=== PATIENT | female | born 1995 | race Caucasian/White ===

== ENCOUNTER 2017-03-31 00:07 | Inpatient (IN) | payer BC, OTHER ==
[~2017-03-31 00:07] MED LIST: Misoprostol 50 MCG (1/2 of 100 MCG) Tab VAG PRN
[2017-03-31] MEDS ORDERED: Carboprost Tromethamine 250 MCG/1 ML Amp IM PRN (01:19)
[2017-03-31] MEDS ORDERED: Misoprostol 400 MCG (4 X 100 MCG TAB) RECTAL PRN (01:19)
[2017-03-31] MEDS ORDERED: Acetaminophen 325 MG Tab PO PRN ×2 (01:19)
[2017-03-31] MEDS ORDERED: Methylergonovine 0.2 MG/1 ML Amp IM PRN (01:19)
[2017-03-31] MEDS ORDERED: Sodium Chloride 0.9% 10 ML Syringe FLUSH PRN (01:19)
[2017-03-31] MEDS ORDERED: Lactated Ringers 500 ML IV ONE (01:19)
[2017-03-31] MEDS ORDERED: Ondansetron 4 MG/2 ML SDV IV PRN (01:19)
[2017-03-31] MEDS ORDERED: Lidocaine 1% 30 ML SDV INJECT PRN (01:19)
[2017-03-31] MEDS ORDERED: Oxytocin/Normal Saline 30 UNIT/500 ML BAG IV SCH ×2 (01:30→15:15)
[2017-03-31] MEDS ORDERED: Misoprostol 25 MCG (1/4 of 100 MCG) Tab VAG PRN (05:27)
[2017-03-31] MEDS: Lactated Ringers 1,000 ML IV SCH ×5 (08:35→22:48)
--- NOTE | 2017-03-31 09:20 | OBOUT ---
DATE: 03/31/2017 DATE AND TIME OF NST: Date: 03/31/2017. Time: 0100 hours to 0120 hours. REASON FOR NST: 1. Intrauterine at 41-1/7th weeks by 15-3/7th weeks' ultrasound. 2. Group B Strep negative. 3. Rubella nonimmune. 4. History of low-lying posterior placenta - resolved in . 5. 1, para 0. NST INTERPRETATION: During this time period, heart tone baseline is approximately 135, and there are at least two 15 x 15 beat per minute accelerations, making this strip reactive. It is also noted to be reassuring. Tocometer reveals potential of 1 contraction not felt by patient. ASSESSMENT AND PLAN: 1. Nonstress test - reactive and reassuring. 2. Tocometer with contraction. PLAN: Please see admit history and physical for further details. Updated and included are vitals which are stable. Temperature 97, heart rate of 96, blood pressure 130/76. Vaginal exam reveals her to be 1 cm, 75% effaced, 0 station, vertex suspected, with cervix being posterior. Cytotec 25 mcg x1 was placed. Please see other notes for further details. We will continue to follow clinically and closely at this time. [facility] /[id number]
[2017-03-31] MEDS ORDERED: Nalbuphine 10 MG/1 ML Vial IM ONE (09:53)
[2017-03-31] MEDS ORDERED: Morphine PF 5 MG/10 ML SDV ONE (10:26)
[2017-03-31] MEDS ORDERED: Meperidine PF 50 MG/ML Syringe IV ONE (10:26)
[2017-03-31] MEDS ORDERED: Midazolam 1 MG/ML 2 ML SDV IV ONE (10:26)
[2017-03-31] MEDS ORDERED: fentaNYL 100 MCG/2 ML SDV ITHECAL ONE ×2 (10:26)
[2017-03-31] MEDS ORDERED: Oxytocin/Normal Saline 30 UNIT/500 ML BAG IV ONE (10:29)
--- NOTE | 2017-03-31 13:20 | PN ---
DATE: 03/31/2017 SUBJECTIVE: The patient has been having some back pain. OBJECTIVE: Tocometer reveals contractions every minute and half to [address] a second dose of Cytotec through the morning. Vaginal exam reveals her to be 2 cm, 75% effaced, -1 station, vertex suspected. Artificial rupture of membranes done after discussion with the patient yielding copious amounts of clear fluid. heart tones in the 150, so acceleration noted with vaginal exam. ASSESSMENT AND PLAN: Intrauterine 41 and 1/7th sounds weeks by 15 and 3/7 week ultrasound. Group B Streptococcus negative. Rubella nonimmune. G1, P0. Now status post Cytotec x1 and artificial rupture of membranes. We will continue to follow clinically and closely. The patient understands and agrees with the above treatment plan. [facility] /[id number]
[2017-03-31] MEDS ORDERED: fentaNYL 100 MCG/2 ML SDV ONE ×2 (13:35→16:51)
--- NOTE | 2017-03-31 14:07 | PN ---
DATE: 03/31/2017 SUBJECTIVE: The patient has been breathing through her contractions. She had some Nubain earlier, which helped. OBJECTIVE: heart tones in the 120s range with acceleration seen. Tocometer difficult to discern, but appears to be contractions every couple minutes. Vaginal exam reveals to be 4-5 cm, 90% effaced, 0 station, vertex suspected. ASSESSMENT AND PLAN: Intrauterine 41 and 1/7th weeks by 15 and 3/7 week ultrasound. Group B Streptococcus negative. Rubella nonimmune. The patient now status post Cytotec x1 and artificial rupture of membranes and active labor requesting something more for pain. We will do an intrathecal and follow clinically and closely. The patient understands and agrees with the above treatment plan. [facility] /[id number]
--- NOTE | 2017-03-31 14:08 | PCM.PREANE ---
Preanesthetic Assessment - Procedure Proposed Procedure: Intarthecal Narcotics for Labor pain - Anesthesia/Transfusion/Family Hx Anesthesia History: No Prior Anesthesia Family History of Anesthesia Reaction: No Transfusion History: No Prior Transfusion(s) Intubation History: Unknown - Review of Systems General: No Symptoms Pulmonary: No Symptoms Cardiovascular: No Symptoms Gastrointestinal: No symptoms Neurological: No Symptoms Other: Reports: None - Physical Assessment NPO Status Date: 03/31/17 NPO Status Time: 08:00 Pulse: 98 O2 Sat by Pulse Oximetry: 99 Respiratory Rate: 18 Blood Pressure: 118/68 Temperature: 97.8 F Vital Signs: Last Vital Signs Temp 98.2 F 03/31/17 08:00 Pulse 97 03/31/17 08:00 Resp 18 03/31/17 08:00 BP 120/77 03/31/17 08:00 Pulse Ox Height: 1.65 m Weight: 101.605 kg ASA Class: 2 Mental Status: Alert & Oriented x3 Airway Class: Mallampati = 2 Dentition: Reports: Normal Dentition Thyro-Mental Finger Breadths: 3 Mouth Opening Finger Breadths: 4 ROM/Head Extension: Full Lungs: Clear to auscultation, Normal respiratory effort Cardiovascular: Regular Rate, Regular Rhythm - Lab Values: Laboratory Last Values WBC 13.7 10^3/uL (5.0-10.0) H 03/31/17 01:00 RBC 4.54 10^6/uL (4.2-5.4) 03/31/17 01:00 Hgb 13.3 g/dL (12.0-16.0) 03/31/17 01:00 Hct 39.4 % (37.0-47.0) 03/31/17 01:00 MCV 86.8 fL (80-100) 03/31/17 01:00 MCH 29.3 pg (27.0-34.0) 03/31/17 01:00 MCHC 33.8 g/dL (33.0-35.0) 03/31/17 01:00 Plt Count 239 10^3/uL (150-450) 03/31/17 01:00 - Allergies Allergies/Adverse Reactions: Allergies Allergy/AdvReac Type Severity Reaction Status Date / Time sulfamethoxazole Allergy Cannot Verified 03/31/17 03:01 [From Bactrim] Remember trimethoprim [From Bactrim] Allergy Cannot Verified 03/31/17 03:01 Remember - Blood Blood Available: No Product(s) Available: None - Anesthesia Plan Pre-Op Medication Ordered: None - Acknowledgements Anesthesia Type Planned: Spinal Pt an Appropriate Candidate for the Planned Anesthesia: Yes Alternatives and Risks of Anesthesia Discussed w Pt/Guardian: Yes Pt/Guardian Understands and Agrees with Anesthesia Plan: Yes Additional Comments: R/B of Intrathecal narcotics discussed and agreed to by patient. Consent is signed PreAnesthesia Questionnaire - Past Health History Medical/Surgical History: Denies Medical/Surgical History CARE ADMINISTRATIVE TECH History: Reports: - Past Surgical History HEENT Surgical History: Reports: Other (See Below) Other HEENT Surgeries/Procedures: PE tubes - SUBSTANCE USE Smoking Status *Q: Never Smoker Second Hand Smoke Exposure: No Days Per Week of Alcohol Use: 0 Recreational Drug Use History: No - HOME MEDS Home Medications: Home Meds Pnv No.122/Iron/Folic Acid [ Multi Tablet] 1 each PO DAILY 03/31/17 [ History] - CURRENT (IN HOUSE) MEDS Current Meds: Current Medications Acetaminophen (Tylenol) 650 mg PO Q4H PRN PRN Reason: Pain (Mild 1-3) and fever Last Admin: 03/31/17 08:00 Dose: 650 mg Carboprost Tromethamine (Hemabate Ds) 250 mcg IM ASDIRECTED PRN PRN Reason: HEMORRHAGE Lactated Ringer's (Ringers, Lactated) 1,000 mls @ 125 mls/hr IV ASDIRECTED SVEN Last Admin: 03/31/17 09:40 Dose: 125 mls/hr Oxytocin/Sodium Chloride (Pitocin In Ns 30 Unit/500 Ml) 30 unit in 500 mls @ 2 mls/hr IV TITRATE SVEN; 2 MUNITS/MIN PRN Reason: Protocol Lidocaine HCl (Xylocaine-Mpf 1%) 10 ml INJECT ASDIRECTED PRN PRN Reason: Perineal Repair Methylergonovine Maleate (Methergine) 0.2 mg IM ASDIRECTED PRN PRN Reason: Hemorrhage Misoprostol (Cytotec) 25 mcg VAG ONETIME PRN PRN Reason: Other Last Admin: 03/31/17 01:27 Dose: 25 mcg Misoprostol (Cytotec) 800 mcg RECTAL ASDIRECTED PRN PRN Reason: Hemorrhage Misoprostol (Cytotec) 25 mcg VAG Q4H PRN PRN Reason: cervical ripening Stop: 04/01/17 09:28 Ondansetron HCl (Zofran) 4 mg IV Q4H PRN PRN Reason: Nausea/Vomiting Sodium Chloride (Saline Flush) 10 ml FLUSH ASDIRECTED PRN PRN Reason: Keep Vein Open Discontinued Medications Acetaminophen (Tylenol) 650 mg PO Q4H PRN PRN Reason: Pain/Fever Fentanyl (Sublimaze) Confirm Administered Dose 100 mcg .ROUTE .STK-MED ONE Stop: 03/31/17 13:36 Lactated Ringer's (Ringers, Lactated) 500 mls @ 500 mls/hr IV .BOLUS ONE Stop: 03/31/17 02:18 Nalbuphine HCl (Nubain) 20 mg IM ONETIME ONE Stop: 03/31/17 09:54 Last Admin: 03/31/17 10:05 Dose: 20 mg Sufentanil Citrate (Sufenta) Confirm Administered Dose 50 mcg .ROUTE .STK-MED ONE Stop: 03/31/17 13:36
--- NOTE | 2017-03-31 14:09 | PCM.PRNOTE ---
- Free Text/Narrative Note: Chart Reviewed, Patient ID'd, Risk Benefit of spinal narcotic for labor pain is discussed and agreed to by patient. Consent signed. Preloaded with 1 liter of LR. Baseline VS is obtained. In sitting position L 4-5 inner space is ID'd. Skin wheel and space infiltration with 1% lidocaine. 24 G pencan spinal needle is introduced into via 18 G introducer needle into SA space. No Paresthesia, No Blood, Positive CSF. 6 mg Hyperbaric Marcaine, 20 mcg sufentanyl, 30 mcg fentanyl, epinepherine wash and 1 ml preservative free normal saline injected after positive swirl of CSFx2. VSS Dermatone level is T8 Bilateral and immediate labor pain relieve reported by patient.
--- NOTE | 2017-03-31 15:04 | PN ---
DATE: 03/31/2017 SUBJECTIVE: The patient is comfortable status post intrathecal. OBJECTIVE: heart tones in the 130s range. Occasional deceleration but unable to tell where it is at in regards to contraction. Vaginal exam reveals to be 4-5 cm, 95% effaced, 0 station, vertex suspected, and IUPC placed after discussion with the patient. ASSESSMENT AND PLAN: Intrauterine 41 and 1/7th weeks by 15 and 3/7th weeks ultrasound now status post Cytotec x1 artificial rupture of membranes and IUPC placement. We will follow MVUs closely, use Pitocin as needed and follow maternal status closely. The patient understands and agrees with the above treatment plan. [facility] /[id number]
--- NOTE | 2017-03-31 17:15 | PCM.PRNOTE ---
- Free Text/Narrative Note: Repeat Intracthecal Narcotics. Pain level is 8. Patient is able to move her legs but not wiggle her toes. Baseline VS is obtained. In sitting position L 4-5 inner space is ID'd. Skin wheel and space infiltration with 1% lidocaine. 24 G pencan spinal needle is introduced into via 18 G introducer needle into SA space. No Paresthesia, No Blood, Positive CSF. 4 mg Hyperbaric Marcaine, 20 mcg sufentanyl, 30 mcg fentanyl, epinepherine wash and 1 ml preservative free normal saline injected after positive swirl of CSFx2. VSS Dermatone level is T8 Bilateral and immediate labor pain relieve reported by patient. BP 110/64, HR 82, RR 22,
[2017-03-31] MEDS ORDERED: Measles, Mumps & Rubella Vaccine 0.5 ML SDV SUBCUT ONE (22:43)
[2017-03-31] MEDS ORDERED: diphenhydrAMINE 50 MG/ML SDV IVPUSH PRN (22:43)
[2017-03-31] MEDS ORDERED: Naloxone 2 MG/2 ML Syringe IVPUSH PRN (22:43)
[2017-03-31] MEDS ORDERED: Citric Acid/Sodium Citrate Solution 30 ML Cup PO ONE (22:43)
[2017-03-31] MEDS ORDERED: ePHEDrine 50 MG/ML SDV IVPUSH PRN (22:43)
[2017-03-31] MEDS ORDERED: ceFAZolin 2 GM in Premix Bag 1 BAG IV ONE (22:43)
[2017-03-31] MEDS ORDERED: Lactated Ringers 1,000 ML IV SCH (22:45)
[2017-03-31] MEDS ORDERED: Oxytocin/Normal Saline 60 UNIT/1,000 ML BAG ONE (23:00)
[2017-03-31] MEDS ORDERED: Midazolam 1 MG/ML 2 ML SDV ONE (23:03)
[2017-03-31] MEDS ORDERED: Methylergonovine 0.2 MG/1 ML Amp ONE (23:55)
[2017-04-01] MEDS ORDERED: Meperidine PF 50 MG/ML Syringe ONE (00:19)
[2017-04-01] MEDS: Lactated Ringers 1,000 ML IV SCH (02:29)
[2017-04-01] MEDS ORDERED: Ketorolac 30 MG/ML SDV IVPUSH ONE (06:00)
--- NOTE | 2017-04-01 08:50 | PN ---
DATE: 03/31/2017 SUBJECTIVE: The patient is feeling more of contractions. She has been pushing for about an hour and a half per nurse report. OBJECTIVE: heart tones in the 150s to 160s range with some what appears to be early versus variable decelerations with pushing. Tocometer reveals contractions every 2 to 3 minutes. Pitocin is at 6 milliunits per minute. Vaginal exam reveals her to be complete and pushing, at 0 to +1 station with good pushing effort and minimal to no descent with pushing at the current time. ASSESSMENT AND PLAN: Intrauterine at 41 and 1/7th weeks by 15 and 3/7th weeks ultrasound in second stage of labor. Currently pushing with good effort. We will continue to follow clinically and closely. Try positional changes with her pushing and follow closely. Plans were discussed with her and her mother, they understand and agree. [facility] /[id number]
--- NOTE | 2017-04-01 08:53 | PN ---
DATE: 03/31/2017 SUBJECTIVE: The patient has been feeling contractions, has been pushing for over 2 hours. OBJECTIVE: heart tones in the 150s range. There have been some accelerations noted. Tocometer reveals contractions every 2 to 4 minutes. Currently vaginal exam reveals her to be complete and pushing with no further descent from previous evaluation. ASSESSMENT AND PLAN: Intrauterine at 41 and 1/7th weeks by 15 and 3/7th week ultrasound with arrest of descent and nearing prolonged second stage of labor. I did discuss with the patient findings and recommendation to proceed with primary low transverse . Discussed with her and her mother risks, benefits, alternatives, and complications of , including but not limited to, infection, bleeding, damage to internal organs such as bowel, bladder, tubes, uterus, sometimes fetus; rarely needing blood transfusion or further surgery, and rare maternal or , she understands and agrees and wishes to proceed. Verbal and written consent obtained. Questions were answered. We will proceed to the OR as soon as OR crew is ready and available. [facility] /[id number]
--- NOTE | 2017-04-01 09:07 | OR ---
DATE: 03/31/2017 PREOPERATIVE DIAGNOSES: 1. Intrauterine 41 and 1/7th weeks by 15 and 3/7th week ultrasound. 2. Prolonged 2nd stage of labor. 3. Arrest of descent. 4. Group B Streptococcus negative. 5. Rubella nonimmune. 6. History of low-lying posterior placenta - resolved. 7. G1, P0. POSTOPERATIVE DIAGNOSES: 1. Intrauterine 41 and 1/7th weeks by 15 and 3/7th week ultrasound. 2. Prolonged 2nd stage of labor. 3. Arrest of descent. 4. Group B Streptococcus negative. 5. Rubella nonimmune. 6. History of low-lying posterior placenta - resolved. 7. G1, P0. 8. Uterine atony, requiring Methergine. PROCEDURE PERFORMED: NST, Cytotec, artificial rupture of membranes, IUPC, Pitocin augmentation followed by primary low transverse with 2-layer uterine closure performed by Dr. Hernandez with certified surgical tech/first assistant by Brock Mohan MD and NIRANJAN Marino. ANESTHESIA: Spinal. EBL: 600 mL. IV FLUID: 850 mL. URINE OUTPUT: 100 mL and clear yellow. START: 2349 hours. UTERINE INCISION: 2353 hours. DELIVERED: 2354 hours. STOP: 0016 hours. FINDINGS: Male, scores 8 and 9, weighing 7 pounds 9 ounces. DESCRIPTION OF PROCEDURE IN DETAIL: After proper consent was obtained, the patient was brought to the operating room where spinal anesthetic was administered. A Neil was placed in preop under sterile conditions. Abdomen was prepped and draped in normal sterile fashion, placed in the supine position with left lateral tilt. Skin incision was then made over lower abdomen in transverse Pfannenstiel-type fashion, this was carried down to the fascia and scored in midline. Subcutaneous tissue was raked laterally with Dunn retractor and fascial incision was extended in a lateral fashion using curved Ho's. Kyler clamps x2 were used to grasp the superior aspect of fashion. Rectus muscles were dissected from fascia using sharp and blunt technique. Similar fashion, Kyler clamps x2 used to grasp the inferior portion of incision and rectus pyramidalis muscles were dissected from fascia using sharp and blunt technique. Rectus muscles were in the midline with blunt technique. Abdominal cavity was entered in blunt technique and incision was extended superiorly and inferiorly using blunt technique. Giuseppe O large retractor was then introduced and used. Vesicouterine peritoneum was identified, incised in transverse fashion using Metzenbaum scissors and bladder flap was made digitally. A curvilinear incision was made on lower uterine segment at 2353 hours. Uterus was entered sharply. Clear fluid returned. Uterine incision was extended in transverse fashion using blunt technique. vertex was then brought up from the pelvis and delivered through the incision followed by rest of the infant without difficulty. Mouth and nares were suctioned. Cord was doubly clamped and cut, was brought over to team. Then, approximately 10 mL cord blood was obtained for labs. Placenta then delivered with gentle cord traction and fundal massage. Uterine cavity was then cleared of all blood clots and debris with lap sponge. Ross clamps were used to grasp the uterine incision, this was closed in a running locked fashion, tied at lateral margins with 1-0 Vicryl. Uterine atony was noted and Methergine was called for and given with resolution thereafter. Second imbricating layer was then applied with 1-0 Vicryl. First inspection of the uterine incision revealed hemostasis. Giuseppe O retractor was then removed and paracolic gutters were then cleared of all blood clots and debris with lap sponge. Anterior cul-de-sac was then irrigated copiously and all blood clots were removed. Second and final inspection of the uterine incision and anterior cul-de-sac revealed hemostasis. Rectus muscles were then reapproximated in midline with [id number] stitch using 1-0 Vicryl. Subfascial tissue was found to be hemostatic. Fascia was closed in a running fashion, tied at lateral margin with 0 looped PDS. Subcutaneous tissue was irrigated copiously. Hemostasis was reassured. Skin was reapproximated with medium aky. Sterile Aquacel dressing was applied. Uterus fundus was firm and massaged at conclusion of the case and +1 above the umbilicus. No immediate complications were noted. Sponge, lap, and needle counts were correct. The patient received 2 g of Ancef preoperatively, Pitocin per protocol and will receive Toradol at the conclusion of case for pain control. Mother and infant are currently stable at the time of dictation. [facility] /[id number]
[2017-04-01] MEDS: Simethicone 80 MG Tab.Chew PO PRN ×2 (09:13→22:35)
[2017-04-01] MEDS: Prenatal Multivitamin with Calcium/Folic Acid/Iron Tab PO SCH (09:13)
[2017-04-01] MEDS: Docusate Sodium 100 MG Cap PO PRN (09:14)
[2017-04-01] MEDS: Acetaminophen/oxyCODONE 325-5 MG Tab PO PRN ×4 (09:18→22:35)
--- NOTE | 2017-04-01 11:15 | PCM.POSTAN ---
POST ANESTHESIA ASSESSMENT - MENTAL STATUS Mental Status: alert, oriented - VITAL SIGNS Pulse Rate: 88 SaO2: 100 Resp Rate: 20 Blood Pressure: 131/72 Temperature: 97.8 F - RESPIRATORY Respiratory Status: respiratory rate WNL, airway patent, O2 saturation stable - CARDIOVASCULAR CV Status: pulse rate WNL, blood pressure stable - GASTROINTESTINAL GI Status: no symptoms - PAIN Pain Score: 0 - POST OP HYDRATION Hydration Status: adequate & stable - OBSERVATIONS Free Text/Narrative:: Tolerated c/section well. Pain free sitting in bed to ambulate this afternonn. Moves her lower extremities. Pleased with the outcome and has no complains.
[2017-04-01] MEDS: Ketorolac 30 MG/ML SDV IVPUSH SCH ×2 (13:15→18:22)
[2017-04-02] MEDS: Ketorolac 30 MG/ML SDV IVPUSH SCH (00:09)
[2017-04-02] MEDS: Acetaminophen/oxyCODONE 325-5 MG Tab PO PRN ×6 (02:49→23:01)
[2017-04-02] MEDS: Simethicone 80 MG Tab.Chew PO PRN ×4 (06:44→23:00)
[2017-04-02] MEDS: Ondansetron 4 MG Tab.DIS PO PRN (07:24)
--- NOTE | 2017-04-02 08:41 | PN ---
DATE: 04/01/2017 Postop day #0 status post primary low transverse with 2-layer uterine closure. SUBJECTIVE: The patient is now tolerating p.o., ambulating and urinating, passing flatus. Neil was removed at about 3:00 p.m. today. OBJECTIVE: Vital Signs: Vitals last updated and listed in chart; temperature 98.4, heart rate 77, blood pressure 118/60, respiratory rate 15. Lungs: Clear to auscultation bilaterally. Heart: S1 and S2. Regular rate and rhythm. Abdomen: Firm uterus at around the umbilicus with Aquacel dressing dry and intact. LABORATORY DATA: White cell count 24.7, hemoglobin 11.3, platelets 213. ASSESSMENT AND PLAN: Postop day #0 status post primary low transverse with 2-layer uterine closure. Today, earlier had leukocytosis, suspect reactive in nature. We will check CBC tomorrow. We will also check due to her anemia. Otherwise, we will continue to follow clinically and closely. Plans were discussed with the patient. She understands and agrees. [facility] /[id number]
--- NOTE | 2017-04-02 08:47 | PN ---
DATE: 04/02/2017 Postop day 1-2. SUBJECTIVE: The patient had an episode of vomiting this morning. Has been tolerating p.o. in the past, and she is ambulating, passing flatus, and urinating. OBJECTIVE: Vital Signs: Vitals last updated and listed in chart; temperature 98.3, heart rate 85, blood pressure 112/65, and respiratory rate 16. Lungs: Clear to auscultation bilaterally. Heart: S1 and S2. Regular rate and rhythm. Abdomen: Firm uterus, 1+ above the umbilicus. Aquacel dressing appears dry and intact. Trace pedal edema. No calf pain. LABORATORY DATA: White cell count was 17.1, hemoglobin 10.7, and platelets 214. ASSESSMENT AND PLAN: 1. Postop day 1-2, status post primary low transverse with 2-layer uterine closure. She had a delivery between 03/31/2017 and 04/01/2017. 2. Leukocytosis-resolving. 3. Anemia, blood loss. Hemoglobin dropped from 13.3 to 10.7. We will continue to follow clinically and closely. Repeat CBC tomorrow. Otherwise follow clinically and closely. Zofran has been ordered for nausea and vomiting. [facility] /[id number]
[2017-04-02] MEDS: Prenatal Multivitamin with Calcium/Folic Acid/Iron Tab PO SCH (08:59)
[2017-04-02] MEDS: Docusate Sodium 100 MG Cap PO PRN ×2 (08:59→23:00)
[2017-04-02] MEDS: Ibuprofen 800 MG Tab PO PRN ×2 (09:00→17:04)
[2017-04-03] MEDS: Ibuprofen 800 MG Tab PO PRN ×3 (01:46→18:10)
[2017-04-03] MEDS: Acetaminophen/oxyCODONE 325-5 MG Tab PO PRN ×6 (02:52→23:44)
[2017-04-03] MEDS: Simethicone 80 MG Tab.Chew PO PRN ×2 (02:53→19:41)
[2017-04-03] MEDS: Ondansetron 4 MG Tab.DIS PO PRN (06:47)
[2017-04-03] MEDS: Prenatal Multivitamin with Calcium/Folic Acid/Iron Tab PO SCH (09:59)
[2017-04-03] MEDS: Docusate Sodium 100 MG Cap PO PRN ×2 (09:59→19:41)
--- NOTE | 2017-04-03 12:02 | PN ---
DATE: 04/03/2017 Postop day 2-3. SUBJECTIVE: The patient is tolerating p.o., ambulating, urinating, passing flatus, had a bowel movement. OBJECTIVE: Vital Signs: Last set of vitals updated and listed in the chart; temp 96.9, heart rate 64, blood pressure 103/61, respiratory rate 16. Lungs: Clear to auscultation bilaterally. Heart: S1 and S2. Regular rate and rhythm. Abdomen: Firm uterus, +1 above the umbilicus. Aquacel dressing dry and intact. Trace pedal edema. No calf pain. LABORATORY DATA: Pending is a CBC for tomorrow morning. ASSESSMENT: 1. Postop day 2-3, status post primary low transverse with 2-layer uterine closure. 2. Leukocytosis, seems to be resolving. No evidence of fever or infection currently. 3. Anemia of acute blood loss. We will continue to follow clinically and closely. The patient is asymptomatic. PLAN: Possible discharge tomorrow. Discussed with patient. She understands and agrees. [facility] /[id number]
[2017-04-04] MEDS: Ibuprofen 800 MG Tab PO PRN ×2 (02:11→10:35)
[2017-04-04] MEDS: Acetaminophen/oxyCODONE 325-5 MG Tab PO PRN ×2 (03:51→08:02)
[2017-04-04 04:09] VITALS: BP 105/65
[2017-04-04] MEDS: Prenatal Multivitamin with Calcium/Folic Acid/Iron Tab PO SCH (10:35)
[2017-04-04] MEDS: Docusate Sodium 100 MG Cap PO PRN (10:38)
--- NOTE | 2017-04-04 15:06 | DISCH ---
ADMIT DIAGNOSES: 1. Intrauterine at 41-1/7th weeks by 15-1/2th weeks' ultrasound. 2. Group B Strep negative. 3. Rubella nonimmune. 4. History of low-lying posterior placenta-resolved. 5. G1,P0. DISCHARGE DIAGNOSES: 1. Intrauterine at 41-1/7th weeks by 15-1/2th weeks' ultrasound- delivered. 2. Group B Strep negative. 3. Rubella nonimmune. 4. History of low-lying posterior placenta-resolved. 5. G1,P0. 6. Prolonged second stage of labor. 7. Arrest of descent. 8. Uterine atony, requiring Methergine. PROCEDURE PERFORMED: NST, Cytotec x1, artificial rupture of membranes, IUPC, Pitocin augmentation, and primary low transverse with 2-layer uterine closure per Dr. Hernandez. HISTORY OF PRESENT ILLNESS: Please see H and P. SUMMARY OF HOSPITAL COURSE: The patient was admitted on the above date with the above diagnoses, underwent the above procedures and then was found to have a prolonged second stage of labor with arrest of descent, and subsequently underwent a primary low transverse with 2-layer uterine closure done under spinal anesthetic with an EBL of 600 mL, yielding a male, scores 8 and 9, weighing 7 pounds 9 ounces. Please see operative note for further details. Postoperative day #1 and #2, please see progress notes. Postop day #3 date of discharge, the patient was tolerating POs, ambulating, urinating, passing flatus, requesting discharge. PHYSICAL EXAMINATION: Vital Signs: Last set of vitals updated and listed in the chart. Temperature 97.9, heart rate 68, blood pressure 105/65, respiratory rate 16. Lungs: Clear to auscultation bilaterally. Heart: S1 and S2. Regular rate and rhythm. Abdomen: Firm uterus -1 below umbilicus. Aquacel dressing appears dry and intact. Extremities: Trace pedal edema. No calf pain. LABORATORY DATA: Pending is a discharge CBC. CONDITION ON DISCHARGE COMPARED TO CONDITION ON ADMISSION: Improved. DISCHARGE INSTRUCTIONS: 1. Diet as tolerated. 2. Activity: No lifting more than 20 pounds. No sit-ups, straining, and pelvic rest for next 6 weeks with immediate return to fertility discussed with the patient. 3. Reason to return or go to the emergency room was discussed with the patient in detail to include, but not limited to, temperature of greater than 100.4, foul-smelling discharge, red or tender breasts, or increased vaginal bleeding or increasing pain, drainage, or redness around the incision. DISCHARGE MEDICATIONS: 1. [id number] ibuprofen for pain. 2. Iron sulfate 325 b.i.d. x6 weeks. 3. vitamins x6 weeks. 4. Percocet 5/325 one to two q.6h hours p.r.n., #30, no refills. Discussed the use of these medication, adverse and want effects, as well precautions while driving. FOLLOWUP: Follow up on Friday04/07/2017 for staple removal along with her baby. I did discuss with the patient reason to return to the emergency room in regards to her baby as well. Importance of followup and ramifications of not doing so were also discussed. [facility] /[id number]
== END 2017-04-04 11:30 | disposition home or self-care (01) | DRG 765 ==
LOC: DL.OB 00:07 → OBSVTOIN 23:54 → DL.MS 04-01 00:26
PROVIDERS: ADMIT Family Medicine; ATTEND Family Medicine
PROC: 10D00Z1 Extraction of Products of Conception, Low, Open Approach (ICD-10-PCS; principal; 2017-03-31)
PROC: 4A1HXFZ Monitoring of Products of Conception, Cardiac Rhythm, External Approach (ICD-10-PCS; 2017-03-31)
PROC: 10H07YZ Insertion of Other Device into Products of Conception, Via Natural or Artificial Opening (ICD-10-PCS; 2017-03-31)
PROC: 10907ZC Drainage of Amniotic Fluid, Therapeutic from Products of Conception, Via Natural or Artificial Opening (ICD-10-PCS; 2017-03-31)
PROC: 3E0R3BZ Introduction of Anesthetic Agent into Spinal Canal, Percutaneous Approach (ICD-10-PCS; 2017-03-31)
DX: O63.1 Prolonged second stage (of labor) (principal); D62 Acute posthemorrhagic anemia; O62.1 Secondary uterine inertia; Z3A.41 41 weeks gestation of pregnancy; Z37.0 Single live birth
CPT/HCPCS: 01961; 01967; 36415; 51702; 85027; 86850; 86900; 86901; 90707; A9270-GY; J0690; J1885; J2175; J2250; J2274; J2300; J2405; J2590; J3010; J7050; J7120